=== PATIENT | male | born 2000 | race Hispanic/Latino ===

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

== ENCOUNTER 2021-10-16 16:53 | Emergency (ER) | payer MEDICAID, OTHER ==
[~2021-10-16] VITALS: Ht 160 cm; Wt 59.0 kg
[2021-10-16 16:54] VITALS: BP 141/91
== END 2021-10-16 21:19 | disposition left against medical advice (07) ==
LOC: EDH 16:53
DX: L02.91 Cutaneous abscess, unspecified (principal); Z53.21 Procedure and treatment not carried out due to patient leaving prior to being seen by health care provider

== ENCOUNTER 2023-11-13 00:17 | Emergency (ER) | payer OTHER ==
[~2023-11-13] VITALS: Ht 157.5 cm; Wt 59.0 kg
[2023-11-13] MEDS: 0.9%NACL 1000ML 1,000 ML IV ONE (00:35)
[2023-11-13] MEDS: FAMOTIDINE 20MG VIAL IV ONE (00:41)
[2023-11-13] MEDS: METOCLOPRAMIDE 10 MG/2 ML VIAL IVP ONE (00:41)
[2023-11-13] MEDS: LORAZEPAM 2 MG/ML 1 ML VIAL IVP ONE (00:41)
[2023-11-13 00:57] LABS: CARBON DIOXIDE 31 mmol/L (21-32); CHLORIDE 102 mmol/L (101-111); CREATININE 0.9 mg/dL (0.5-1.5); GLOMERULAR FILTR. RATE CALC 123 mL/min (>90); GLUCOSE,RANDOM 113 mg/dL (70-105); POTASSIUM 3.7 mmol/L (3.5-5.1); SODIUM SERUM 140 mmol/L (136-145); UREA NITROGEN, BLOOD 9 mg/dL (7-18)
[2023-11-13 00:58] LABS: INR 0.94 (0.85-1.15); PROTHROMBIN TIME 10.9 SEC (9.6-11.6)
[2023-11-13 01:00] LABS: PARTIAL THROMBOPLASTIN TIME 26.5 SEC (26.3-35.5)
[2023-11-13 01:02] LABS: ALANINE AMINOTRANSFERASE 32 U/L (12-78); ALBUMIN 4.2 g/dL (3.5-5.0); ALCOHOL, BLOOD < 3 mg/dL (0-10); ASPARTATE AMINOTRANSFERASE 24 U/L (10-37); BILIRUBIN,TOTAL 0.4 mg/dL (0.2-1.0); TOTAL PROTEIN, SERUM 7.8 g/dL (6.0-8.3)
[2023-11-13 01:10] LABS: BASOPHILS # (AUTO) 0.05 K/uL (0.00-0.20); BASOPHILS % (AUTO) 0.6 % (0.0-5.0); EOSINOPHILS # (AUTO) 0.13 K/uL (0.00-0.70); EOSINOPHILS % (AUTO) 1.5 % (0.0-8.0); HEMATOCRIT 43.4 % (42-54); IMMATURE GRANULOCYTE ABSOLUTE 0.02 K/uL (0-1); LYMPHOCYTES # (AUTO) 4.4 K/uL (1.0-4.8); LYMPHOCYTES % (AUTO) 49.7 % (21.0-51.0); MEAN CORPUSCULAR HEMOGLOBIN 30.3 pg (27.0-33.0); MEAN CORPUSCULAR HGB CONC 34.3 g/dL (32.0-36.0); MEAN CORPUSCULAR VOLUME 88.2 fL (79-99); MONOCYTES # (AUTO) 0.6 K/uL (0.1-1.0); MONOCYTES % (AUTO) 6.7 % (3.0-13.0); NEUTROPHILS # (AUTO) 3.6 K/uL (1.8-7.7); NEUTROPHILS % (AUTO) 41.3 % (40.0-77.0); PLATELET COUNT (AUTO) 205 K/uL (130-400); RED BLOOD CELL COUNT(AUTO) 4.92 MIL/uL (4.50-6.20); RED CELL DISTRIBUTION WIDTH 12.1 % (11.0-15.5); WHITE BLOOD COUNT (AUTO) 8.8 K/uL (4.8-10.8)
[2023-11-13 01:57] LABS: APPEARANCE,URINE CLEAR (CLEAR); BILIRUBIN,URINE NEGATIVE (NEGATIVE); COLOR,URINE LIGHT-YELLOW (YELLOW); GLUCOSE, URINE (UA) NEGATIVE (NEGATIVE); KETONES,URINE NEGATIVE (NEGATIVE); LEUKOCYTE ESTERASE ,URINE NEGATIVE Leu/uL (NEGATIVE); NITRATE,URINE NEGATIVE (NEGATIVE); OCCULT BLOOD,URINE NEGATIVE (NEGATIVE); PH,URINE 5.5 (5.0-8.0); PROTEIN,URINE NEGATIVE (NEGATIVE); UROBILINOGEN,URINE 0.2 mg/dL (0.2-1.0)
[2023-11-13 01:58] LABS: ADD UA MICROSCOPIC NO
[2023-11-13 02:04] LABS: AMPHET/METH SCREEN,URINE NEGATIVE (NEGATIVE); BARBITURATE SCREEN, URINE NEGATIVE (NEGATIVE); BENZODIAZEPINES SCREEN,URINE NEGATIVE (NEGATIVE); CANNABINOID SCREEN,URINE POSITIVE (NEGATIVE); COCAINE SCREEN,URINE NEGATIVE (NEGATIVE); OPIATE SCREEN,URINE NEGATIVE (NEGATIVE); PHENCYCLIDINE SCREEN,URINE NEGATIVE (NEGATIVE)
[2023-11-13 02:36] VITALS: BP 127/78; PULSE 81; RESP 16; O2SAT 99
== END 2023-11-13 02:41 | disposition home or self-care (01) ==
LOC: EDH 00:17
DX: R55 Syncope and collapse (principal); F12.90 Cannabis use, unspecified, uncomplicated; R53.1 Weakness; Z79.899 Other long term (current) drug therapy
CPT/HCPCS: 99285; 70450; 96374; 96375; 96361; 84484; 80053; 80305; 85025; 85610; 85730; 36415; 72125; 93005; 81003; J3490; J7030; J2060; J2765

== ENCOUNTER 2024-11-15 23:53 | Emergency (ER) | payer SELFPAY ==
[~2024-11-15] VITALS: Ht 160 cm; Wt 60.3 kg
--- NOTE | 2024-11-16 00:58 | ERN ---
ED Note History of Present Illness Stated Complaint: GBW, ACHES, TOOTHACHE Chief Complaint: Multiple Complaints Time Seen by MD: 00:21 Dictation: This is a 24-year-old male who presented to the emergency room with complaints of generalized body weakness for the past 2 days and body aches. No reported a chronic toothache for many months and headaches. No fevers chills or rigors. He has multiple cavities in the lower and upper molars and after a previous infection he felt better so he did not follow through. He was concerned about severe sepsis and came here to get labs. No purulent drainage but does report small amounts of bleeding from the caries tooth. No facial swelling or jaw swelling. No erythema. Patient has been taking amoxicillin from his mother for the past 1 week. He has also been taking Naprosyn from [facility] Temperature 98.5 pulse 82 respirations 19 blood pressure 132/83 with a pulse oximetry of 99% on room Allergies: Coded Allergies: No Known Allergies (Unverified Allergy, Unknown, 10/16/21) Home Meds Active Scripts Oxycodone HCl/Acetaminophen (Percocet 5-325 mg Tablet) 5 Mg-325 Mg Tablet, 1 EACH PO Q6H for pain, #16 TAB 0 Refills Prov:FRANCISCA MASCORRO MD 11/16/24 Chlorhexidine Gluconate (Peridex Oral Rinse) 0.12 % Mwsh, 15 ML PO BID for 14 Days, #473 ML 0 Refills Swish and spit Prov:FRANCISCA MASCORRO MD 11/16/24 Amoxicillin/Potassium Clav (Augmentin 500-125 Tablet) 500 Mg-125 Mg Tablet, 1 TAB PO BID for 10 Days, #20 TAB 0 Refills Prov:FRANCISCA MASCORRO MD 11/16/24 Past Medical History Past Medical History: No Pertinent History Surgical History: None RN Note Reviewed/Agreed w/PFSH: Yes Review of System Dictation Constitutional: Negative for fever,chills, and weight loss Eyes: Negative for injury, pain,redness, and discharge ENT: Negative for injury,pain or swelling positive for toothache generalized weakness and fatigue Cardiovascular: Negative for chest pain, palpitations, and edema Respiratory: Negative for shortness of breath, cough, and wheezing, Abdomen/GI: Negative for abdominal pain, nausea, vomiting, diarrhea, and constipation Back: Negative for injury and pain : Negative for injury, bleeding and discharge MS/Extremity: Negative for injury and deformity Skin: Negative for rash, and discoloration Neuro: Positive for headache, negative for weakness, denies numbness, tingling, and seizure Psych: Negative for suicide ideation, homicidal ideation, and hallucinations Initial Vital Sign VS Vital Signs Date Time Temp Pulse Resp B/P (MAP) Pulse Ox O2 Delivery O2 Flow Rate FiO2 11/16/24 00:05 98.4 82 19 132/83 99 Room Air Physical Exam Dictation General: awake, alert, NAD Head/Face: Normocephalic, atraumatic Eyes: PERRL, EOMI, vision at baseline ENT: oral cavity clear, TMs clear, no signs of infection multiple molar teeth on both sides of the upper jaw and lower jaw left side molars have multiple cavities and gum swelling. Neck: Trachea midline, supple, no nuchal rigidity Cardiovascular: RRR, normal S1/S2, No MRGs, no JVD Respiratory: CTAB, no respiratory distress, No rales or wheezes Abdomen: Soft, non-tender, non-distended, normal bowel sounds, no guarding or rebound. Skin: Warm, dry, normal turgor, no rash MS/Extremity: Pulses equal, no cyanosis, neurovascular intact, FROM Neuro: COAx4, GCS 15, strength 5/5, CN 2-12 intact, normal cerebellar exam, normal gait, Psych: Normal behavior, mood, and affect normal Extremities-trace edema without any palpable cords, Homans sign is negative Results (Laboratory/Radiology) Laboratory/Radiology Laboratory Tests Test 11/16/24 02:26 White Blood Count 13.0 K/uL (4.8-10.8) H Red Blood Count 5.00 MIL/uL (4.50-6.20) Hemoglobin 15.3 g/dL (14.0-18.0) Hematocrit 43.9 % (42-54) Mean Corpuscular Volume 87.8 fL (79-99) Mean Corpuscular Hemoglobin 30.6 pg (27.0-33.0) Mean Corpuscular Hemoglobin Concent 34.9 g/dL (32.0-36.0) Red Cell Distribution Width 11.5 % (11.0-15.5) Platelet Count 164 K/uL (130-400) Mean Platelet Volume 9.8 fL (7.5-10.5) Immature Granulocyte % (Auto) 0.3 % (0-1) Neutrophils (%) (Auto) 71.8 % (40.0-77.0) Lymphocytes (%) (Auto) 16.7 % (21.0-51.0) L Monocytes (%) (Auto) 10.7 % (3.0-13.0) Eosinophils (%) (Auto) 0.2 % (0.0-8.0) Basophils (%) (Auto) 0.3 % (0.0-5.0) Neutrophils # (Auto) 9.4 K/uL (1.8-7.7) H Lymphocytes # (Auto) 2.2 K/uL (1.0-4.8) Monocytes # (Auto) 1.4 K/uL (0.1-1.0) H Eosinophils # (Auto) 0.02 K/uL (0.00-0.70) Basophils # (Auto) 0.04 K/uL (0.00-0.20) Absolute Immature Granulocyte (auto 0.04 K/uL (0-1) Nucleated Red Blood Cells 0.0 % (0.0-0.19) Sodium Level 134 mmol/L (136-145) L Potassium Level 3.5 mmol/L (3.5-5.1) Chloride Level 99 mmol/L (101-111) L Carbon Dioxide Level 31 mmol/L (21-32) Blood Urea Nitrogen 8 mg/dL (7-18) Creatinine 0.9 mg/dL (0.5-1.3) Glomerular Filtration Rate Calc 122 mL/min (>90) Random Glucose 109 mg/dL (70-105) H Total Calcium 8.8 mg/dL (8.5-10.1) Labs Reviewed?: Yes ED Course ED Course Orders Procedure Category Date Status Time Cbc With Differential LAB 11/16/24 Complete : Basic Metabolic Panel LAB 11/16/24 Complete 01:15 Ketorolac PHA 11/16/24 Complete Tromethamine 15mg/Ml 03:00 Current Medications Medications (Trade) Dose Ordered Sig/Hansel Route PRN Reason Start Time Stop Time Status Last Admin Dose Admin Ketorolac Tromethamine (toRADol) 15 mg ONCE ONCE IM 11/16/24 03:00 11/16/24 03:03 DC Vital Signs Date Time Temp Pulse Resp B/P (MAP) Pulse Ox O2 Delivery O2 Flow Rate FiO2 11/16/24 00:05 98.4 82 19 132/83 99 Room Air We will administer medications according to the patient's complaint. Once the results are available, will review and personally interpreted the labs to rule out any acute life-threatening emergency the trach require immediate intervention and treatment. I will then re-evaluate the patient after treatment and diagnostic exams have return to determine whether the patient requires any further testing, can safely be discharged home or need further admission to hospital for additional treatment and evaluation. 1:40 a.m.-patient and his spouse insisted on getting labs. I explained to them that things would be delayed due to ER completely packed even in the hallways and there is an expected delay in obtaining labs. 2:20 a.m. labs are still pending. Awaiting a room 3:05 a.m. Reviewed BNP 7 is within normal limits. WBCs 56971. Patient has been taking a lot of NSAID-FLANAX__(which is Naprosyn) from [facility]. I updated both of them on available labs and offered pain medication Toradol. Patient refused. We will be discharging him on p.o. antibiotics and oral rinse. He is seeing his dentist tomorrow. . Medical Decision Making MDM MDM: Differential diagnosis: Periodontitis, gingivitis, dental caries, cellulitis of the face or jaw. Rationale: Tests considered and ordered secondary to shared decision making include: Previous outside records reviewed: Old ER visits. Risk of complication and/or morbidity or mortality of patient management: None Medications-Per medication reconciliation Need for hospitalization: Patient does not meet criteria for hospitalization. Need for emergency major/minor surgery: No There are no social concerns with this patient. Prescription drug management Prescriptions will include symptomatic care Patient's prior external medical records from other ER visits were reviewed by me as indicated. Prior testing and results from previous visits were reviewed. Prior tests were taken into account with medical decision making and resource utilization, independent historian/historians were used to obtain complete medical history. I independently interpreted the test that were performed, results were reviewed by me and considered findings on radiology if ordered. Medical management and examination interpretation discussions were had by me with other qualified healthcare professionals as indicated for the patient's care. Problem List Problem List: (1) Toothache (2) Periodontitis (3) Dental caries DX & DISP Disposition: Discharge Departure Impression: Primary Impression: Dental caries Additional Impressions: Periodontitis, Toothache Condition: Stable Scripts Oxycodone HCl/Acetaminophen (Percocet 5-325 mg Tablet) 5 Mg-325 Mg Tablet 1 EACH PO Q6H for pain, #16 TAB 0 Refills Prov: FRANCISCA MASCORRO MD 11/16/24 Chlorhexidine Gluconate (Peridex Oral Rinse) 0.12 % Mwsh 15 ML PO BID for 14 Days, #473 ML 0 Refills Swish and spit Prov: FRANCISCA MASCORRO MD 11/16/24 Amoxicillin/Potassium Clav (Augmentin 500-125 Tablet) 500 Mg-125 Mg Tablet 1 TAB PO BID for 10 Days, #20 TAB 0 Refills Prov: FRANCISCA MASCORRO MD 11/16/24 Additional Instructions: Patient and the caregiver have been informed of all the diagnostic tests and the imaging conducted during the today's visit to the emergency room and has verbalized understanding of the results I have personally reviewed and interpreted all diagnostic exams performed here in the ER today as well as the vital signs documented by the nursing staff. The patient is now being discharged to home and should follow up with the primary care physician or the specialist as directed by the ER staff. Follow-up with primary care provider in 1 to 2 days. Take medications as directed here in the emergency room. Okay to continue home medications unless otherwise discussed during your visit in the emergency room today. Return to your nearest emergency room if symptoms worsen or if there is no improvement. Call 911 if you need immediate assistance. Take Tylenol or Motrin [id number] as needed and if no contraindications are present. Increase oral hydration. A wound culture or urine culture was ordered here in the emergency room department please follow-up with primary care provider and advise them to get repeat ports from our facility. If you had any Gerald wrap/splints that were applied here, please do not remove them until you see your primary care or specialty. Referrals: SELF,REFERRAL (PCP) FRANCISCA MASCORRO MD Nov 16, 2024 00:58
--- NOTE | 2024-11-16 02:15 | NUR ---
ASSUMED PT CARE
[2024-11-16 02:30] LABS: BASOPHILS # (AUTO) 0.04 K/uL (0.00-0.20); BASOPHILS % (AUTO) 0.3 % (0.0-5.0); EOSINOPHILS # (AUTO) 0.02 K/uL (0.00-0.70); EOSINOPHILS % (AUTO) 0.2 % (0.0-8.0); HEMATOCRIT 43.9 % (42-54); IMMATURE GRANULOCYTE ABSOLUTE 0.04 K/uL (0-1); LYMPHOCYTES # (AUTO) 2.2 K/uL (1.0-4.8); LYMPHOCYTES % (AUTO) 16.7 % (21.0-51.0); MEAN CORPUSCULAR HEMOGLOBIN 30.6 pg (27.0-33.0); MEAN CORPUSCULAR HGB CONC 34.9 g/dL (32.0-36.0); MEAN CORPUSCULAR VOLUME 87.8 fL (79-99); MONOCYTES # (AUTO) 1.4 K/uL (0.1-1.0); MONOCYTES % (AUTO) 10.7 % (3.0-13.0); NEUTROPHILS # (AUTO) 9.4 K/uL (1.8-7.7); NEUTROPHILS % (AUTO) 71.8 % (40.0-77.0); PLATELET COUNT (AUTO) 164 K/uL (130-400); RED CELL DISTRIBUTION WIDTH 11.5 % (11.0-15.5)
[2024-11-16 02:38] LABS: CREATININE 0.9 mg/dL (0.5-1.3); POTASSIUM 3.5 mmol/L (3.5-5.1)
[2024-11-16] MEDS ORDERED: PERID15L PO (02:54)
[2024-11-16] MEDS ORDERED: OXYC-38 PO (02:54)
[2024-11-16] MEDS ORDERED: AMOX-426 PO (02:54)
[2024-11-16] MEDS: ketOROlac 15MG/ML VIAL (15MG/ML) IM ONE (03:00)
[2024-11-16 03:07] VITALS: BP 132/65; PULSE 18; RESP 18; TEMP 98.5; O2SAT 99
== END 2024-11-16 03:18 | disposition home or self-care (01) ==
LOC: EDH 23:53
DX: K02.9 Dental caries, unspecified (principal); K05.30 Chronic periodontitis, unspecified; Z79.899 Other long term (current) drug therapy
CPT/HCPCS: 36415; 80048; 85025; 99283